=== PATIENT | female | born 1935 | race Two or more races ===

== ENCOUNTER → 2017-03-24 | Outpatient (CLI) | payer OTHER ==
[~2017-03-24] MED LIST: ASCO500C7 PO; ASPI81TA3 PO; ATOR20TA38 PO; BACTDS PO; LOSA100T7 PO; MECL-77 PO; OMEP20CA16 PO; OXYB5TAB PO; TIZA2TAB PO; VITA400C15 PO
--- NOTE | 2017-03-24 13:54 | RADRPT ---
PROCEDURE: XR right knee. CLINICAL INDICATION: Knee pain TECHNIQUE: AP weightbearing, PA weightbearing, lateral weightbearing and sunrise views are availab le for review. 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 There is moder ate osteoarthrosis involving the patellofemoral compartment and mild osteoarthrosis involving the me dial tibial femoral compartment and the lateral tibial femoral compartment. This is associated with joint space narrowing, subchondral sclerosis and osteophytosis. The osseous structures are otherwise normal in mineralization, architecture and alignment. No fract ures are identified. No osseous lesions are identified. The soft tissues are unremarkable. 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 Moderate osteoarthrosis involving the patellofemoral compartment and mild osteoarthrosis involving t he medial tibial femoral compartment and the lateral tibial femoral compartment. RPTAT: [facility] .Mando Cisse MD, MD Date Time Electronically viewed and signed by .Mando Cisse MD, on 03/24/2017 13:54 .B/
== END | disposition home or self-care (01) ==
LOC: HKI 10:26
PROVIDERS: ATTEND Orthopaedic Surgery
DX: M25.561 Pain in right knee (principal); M25.562 Pain in left knee; M17.0 Bilateral primary osteoarthritis of knee
CPT/HCPCS: G0463

== ENCOUNTER → 2017-05-03 | Outpatient (CLI) | payer OTHER ==
--- NOTE | 2017-05-03 15:01 | PN ---
Date/Time of Note Date/Time of Note DATE: 05/03/17 TIME: 14:56 Assessment/Plan VTE Prophylaxis VTE Prophylaxis Intervention: ambulation Assessment/Plan Assessment/Plan ASSESSMENT: Bilateral knee osteoarthritis PLAN: The patient underwent Monovisc injections to her bilateral knees today. There were no adverse events. She tolerated procedure well. She was advised to apply ice and take [id number] anti-inflammatories or Tylenol as needed for pain. Additionally she should modify her activity for the next few days. We will see her back on a as needed basis. She is to call the office if she has any concerns. PROCEDURE NOTE: The procedure was fully explained to the patient and informed consent was obtained prior to the start of procedure. The superior lateral aspect of bilateral knees were draped and prepped using Betadine. Ethyl chloride was used to anesthetize the superolateral aspect of bilateral knees and 4 cc of Monovisc was injected into each knee intra-articularly. The patient tolerated the procedure well. A sterile dressing was applied. All questions and concerns were addressed at the time of procedure. Subjective 24 Hr Interval Summary Free Text/Dictation The patient presents today for a follow-up evaluation on her bilateral knees. We saw her approximately 1 year ago at which point she had a Monovisc injection to her left knee successfully. She had good symptomatic relief for that time but is here today for bilateral injections. She denies any adverse reactions from her previous injections. She does have progressive bilateral knee pain and discomfort. She denies any fevers or chills. She presents today for bilateral Visco supplementation injections. Exam/Review of Systems Exam On exam today, she is alert and oriented 4, and in no acute distress. She has bilateral 2+ patellofemoral crepitus. Varus and valgus forces are stable. There is no effusion of the right or left knee. She does have a slight varus deformity bilaterally. Compartments are otherwise soft. She is neurovascularly intact distally. JESUS HEDRICK PA-C May 03, 2017 15:00
== END | disposition home or self-care (01) ==
LOC: HKI 14:30
PROVIDERS: ATTEND Orthopaedic Surgery
DX: M17.0 Bilateral primary osteoarthritis of knee (principal)
CPT/HCPCS: 20610; J7327